=== PATIENT | male | born 1990 | race American Indian/Alaskan Native ===

== ENCOUNTER 2018-03-22 09:00 | Emergency (ER) | payer MEDICAID, OTHER ==
[2018-03-22] MEDS: Acetaminophen 325 MG Tab PO ONE (09:24)
[2018-03-22] MEDS: Sodium Chloride 0.9% 1,000 ML IV ONE ×2 (09:28→10:41)
[2018-03-22] MEDS: Sodium Chloride 0.9% 10 ML Syringe FLUSH PRN (09:29)
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
[2018-03-22 10:11] LABS: CHLORIDE,CL 104 mmol/L (101-111); SODIUM,NA 131 mmol/L (135-145)
--- NOTE | 2018-03-22 10:30 | CR ---
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 INTERPRETATION: Abnormal. Upright AP portable chest film confirms asymmetric infrahilar superior segment left lower lobe pneumo andrei like consolidation. Normal cardiac silhouette without alveolar edema or dependent effusion. Molly rods bridging the upper thoracic spine. No rib fractures. No pneumothorax. No lung mass or other focal lobar consolidation (infiltrate/atelectasis. CONCLUSION: Left lower lobe pneumonia.
[2018-03-22] MEDS: Piperacillin/Tazobactam 3.375 GM in Sodium Chloride 0.9% 100 ML IV ONE (10:44)
[2018-03-22] MEDS: Vancomycin 1 GM in Sodium Chloride 0.9% 500 ML IV ONE (11:07)
--- NOTE | 2018-03-26 09:56 | EKG ---
03/22/2018- LOU NOLEN - FINDINGS: This 12-lead EKG shows sinus tachycardia with a heart rate of 135. No significant ST elevation or ST depression noted on this 12-lead EKG. Recommend to repeat the EKG for further evaluation to make sure the patient does not have any underlying atrial fibrillation. [facility] /[id number]
== END 2018-03-22 11:13 ==
LOC: DL.ED 09:00
DX: A41.9 Sepsis, unspecified organism (principal); J18.9 Pneumonia, unspecified organism; Z79.899 Other long term (current) drug therapy
CPT/HCPCS: 36415; 71045; 80053; 81001; 83605; 85025; 85610; 85651; 86140; 87040; 87070; 87086; 87205; 93005; 96361; 96365; 96374; 99285; A9270; J2543; J3370; J7030; J7040; J7050; 87077; 87088; 87186

== ENCOUNTER 2020-07-31 08:45 | Emergency (ER) | payer MEDICAID ==
[2020-07-31] MEDS ORDERED: Insulin Regular, Human 100 Units/ML 3 ML Vial IV ONE (20:51)
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
== END 2020-07-31 21:02 ==
LOC: DL.ED 20:26
DX: E11.10 Type 2 diabetes mellitus with ketoacidosis without coma (principal); J45.909 Unspecified asthma, uncomplicated; Z79.899 Other long term (current) drug therapy
CPT/HCPCS: 36415; 82947; 82962; 99285; J1815; J7050